=== PATIENT | male | born 1950 | race Caucasian/White ===

== ENCOUNTER 2019-08-13 09:37 | Emergency (ER) | payer MEDICARE, OTHER ==
[2019-08-13] MEDS ORDERED: BUFFERED LIDOCAINE 10 ML SYRINGE SUBQ STA (11:22)
--- NOTE | 2019-08-13 11:45 | XRAY Report ---
Reason: chainsaw to the patella Procedure Date: 08/13/2019 Accession Number: [id number] / [id number] Procedure: XR - Knee 4 View LT CPT Code: Final Report FULL RESULT: EXAM: LEFT KNEE RADIOGRAPHY EXAM DATE: 08/13/2019 11:19 AM. CLINICAL HISTORY: Chainsaw to the patella. COMPARISON: None. TECHNIQUE: 5 views. Gauze overlying anterior knee. FINDINGS: Bones: Normal. No fractures or bone lesions. Joints: Normal. No effusion. No subluxations. Soft Tissues: Deep anterior knee soft tissue laceration may extend to the patella. Superior patellar enthesophyte at quadriceps insertion. IMPRESSION: 1. Deep anterior soft tissue laceration, potentially extending to the anterior patellar surface. Recommend clinical correlation. 2. No radiographic evidence for fracture. RADIA
--- NOTE | 2019-08-13 11:53 | ED Physician Documentation ---
PD HPI LOWER EXT INJURY - Stated complaint Stated Complaint: L LEG LAC - Chief complaint Chief Complaint: Laceration - History of Present Illness PD HPI LOW EXT INJURY LOCATION: Left, Knee Type of injury: Laceration Where injury occurred: Home Timing - onset: Today Timing - duration: Minutes Timing - details: Abrupt onset, Still present Improved by: Rest, Immobilization Worsened by: Moving, Palpating Associated symptoms: No: Weakness, Numbness, Tingling, Swelling, Discolored Contributing factors: No: Anticoagulated Similar symptoms before: Diagnosis (laceration) Recently seen: Not recently seen - Additional information Additional information: 69-year-old male was using a chainsaw with a fresh blade and he set the body of the chainsaw down on his leg and lacerated his knee. He has 2 jagged lacerations to the patella on the left side and he is able to walk without difficulty. Review of Systems Constitutional: denies: Fever Eyes: denies: Decreased vision Ears: denies: Ear pain Nose: denies: Congestion Throat: denies: Sore throat Cardiac: denies: Chest pain / pressure Respiratory: denies: Cough PD PAST MEDICAL HISTORY - Past Medical History GI: GERD HEENT: Chronic hearing loss - Past Surgical History Past Surgical History: Yes General: Hiatal hernia repair - Present Medications Home Medications: Ambulatory Orders Medication Instructions Recorded Confirmed Lansoprazole [Prevacid] 30 mg PO DAILY 06/17/13 06/17/13 Cephalexin [Keflex] 500 mg PO TID #15 capsule 08/13/19 Tamsulosin [Flomax] 0.4 mg PO ONCE 08/13/19 08/13/19 - Allergies Allergies/Adverse Reactions: Allergies Allergy/AdvReac Type Severity Reaction Status Date / Time No Known Drug Allergies Allergy Verified 08/13/19 09:49 - Social History Does the pt smoke?: No Smoking Status: Never smoker Does the pt drink ETOH?: No Does the pt have substance abuse?: No - Immunizations Immunizations are current?: Yes Immunizations: TDAP current <10years PD ED PE NORMAL - Vitals Vital signs reviewed: Yes (hypertensive ) - General General: Alert and oriented X 3, No acute distress, Well developed/nourished - HEENT HEENT: Atraumatic, PERRL, EOMI - Respiratory Respiratory: No respiratory distress - Derm Derm: Normal color, Warm and dry, No rash - Extremities Extremities: No deformity, Other (There are 2 deep lacerations to the left patella. The lacerations are 5 cm and 2-1/2 cm and the deeper laceration the longer laceration extends down to the periosteum of the patella. There is no curve of the patella and no rough surface. There are tiny flecks of foreign body in the wound. Distal neurovascular components are intact and the knee is stable.) - Neuro Neuro: Alert and oriented X 3, bite block maker 2-12 intact, No motor deficit, No sensory deficit, Normal speech Eye Opening: Spontaneous Motor: Obeys Commands Verbal: Oriented GCS Score: 15 - Psych Psych: Normal mood, Normal affect Results - Vitals Vitals: Vital Signs - 24 hr 08/13/19 09:46 Temperature 36.4 C L Heart Rate 99 Respiratory 16 Rate Blood Pressure 151/71 H O2 Saturation 96 - Rads (name of study) knee L Radiology: Prelim report reviewed (Impression: 1. Deep anterior soft tissue laceration, potentially extending to the anterior patellar surface. Recommend clinical correlation. No radiographic evidence for fracture. I did), EMP read indepedently, See rad report Procedures - Laceration (location) left knee Length in cm: 7.5 Wound type: Linear, Irregular, Into subcut fat, Contaminated Neurovascular status: Sensory intact, Motor intact, Vascular intact Anesthesia: Lidocaine 1%, With bicarb Wound Preparation: Hibiclens, Irrigated copiously NS, Wound explored, To the base, FB removed Skin layer closure: Nylon, Interrupted, Size #-0 - enter number (4-0), Sutures - enter # (16) Other: Patient tolerated well, No complications, Neurovascular intact, Dressing applied, Tetanus booster given Complexity: Simple PD MEDICAL DECISION MAKING - ED course Complexity details: reviewed results, re-evaluated patient, considered differential, d/w patient, d/w family ED course: 69-year-old male with a deep laceration to the left knee over the patella does not appear to have cut the bone. With deep palpation there are no jagged edges to the bone. The patient's wound is cleaned out thoroughly irrigated with 500 mL's of saline and sutured. We will place him on some Keflex prophylactically. X-ray is without evidence of fracture. Departure - Departure Disposition: 01 Home, Self Care Clinical Impression: Laceration of knee, left Qualifiers: Encounter type: initial encounter Qualified Code(s): S81.012A - Laceration without foreign body, left knee, initial encounter Condition: Stable Instructions: ED Laceration Ext Sutr Stap Tape Follow-Up: Cash Rudd MD [Primary Care Provider] - Prescriptions: Cephalexin [Keflex] 500 mg PO TID #15 capsule Comments: Sutures will need to be removed in 10 to 14 days
[2019-08-13] MEDS ORDERED: TETANUS/DIPHTHERIA/PERTUSSIS 0.5 ML SYRINGE IM ONE (12:34)
[2019-08-13 13:03] VITALS: BP 136/89
== END 2019-08-13 13:13 | disposition home or self-care (01) ==
LOC: ED 09:37
DX: S81.012A Laceration without foreign body, left knee, initial encounter (principal); W29.3XXA Contact with powered garden and outdoor hand tools and machinery, initial encounter; Y92.009 Unspecified place in unspecified non-institutional (private) residence as the place of occurrence of the external cause; Z23 Encounter for immunization
CPT/HCPCS: 12002; 90471

== ENCOUNTER 2019-08-26 13:11 | Emergency (ER) | payer MEDICARE, OTHER ==
[2019-08-26 13:19] VITALS: BP 135/89
--- NOTE | 2019-08-26 13:50 | ED Physician Documentation ---
PD HPI LOWER EXT INJURY - Stated complaint Stated Complaint: REMOVE STITCHES - Chief complaint Chief Complaint: Laceration - History obtained from History obtained from: Patient - History of Present Illness PD HPI LOW EXT INJURY LOCATION: Left (69-year-old gentleman presents for suture removal from left knee laceration about 2 weeks ago without significant complications.) PD PAST MEDICAL HISTORY - Past Medical History Past Medical History: Yes GI: GERD HEENT: Chronic hearing loss - Past Surgical History Past Surgical History: Yes General: Hiatal hernia repair - Present Medications Home Medications: Ambulatory Orders Medication Instructions Recorded Confirmed Lansoprazole [Prevacid] 30 mg PO DAILY 06/17/13 06/17/13 Cephalexin [Keflex] 500 mg PO TID #15 capsule 08/13/19 Tamsulosin [Flomax] 0.4 mg PO ONCE 08/13/19 08/13/19 - Allergies Allergies/Adverse Reactions: Allergies Allergy/AdvReac Type Severity Reaction Status Date / Time No Known Drug Allergies Allergy Verified 08/26/19 13:14 - Social History Does the pt smoke?: No Smoking Status: Never smoker Does the pt drink ETOH?: No Does the pt have substance abuse?: No - Immunizations Immunizations are current?: Yes Immunizations: TDAP current <10years PD ED PE NORMAL - Vitals Vital signs reviewed: Yes - General General: Alert and oriented X 3, No acute distress - Extremities Extremities: Other (Healing laceration anterior over the left patella, sutures removed during examination without issue and replaced with Steri-Strips and benzoin.) - Neuro Neuro: Alert and oriented X 3, Normal speech Results - Vitals Vitals: Vital Signs - 24 hr 08/26/19 13:14 Temperature 36.9 C Heart Rate 98 Respiratory 16 Rate Blood Pressure 135/89 H O2 Saturation 96 Oxygen O2 Source Room air Departure - Departure Disposition: Home, Self Care Clinical Impression: Visit for suture removal Condition: Good
== END 2019-08-26 13:52 | disposition home or self-care (01) ==
LOC: ED 13:11
DX: S81.012D Laceration without foreign body, left knee, subsequent encounter (principal); X58.XXXD Exposure to other specified factors, subsequent encounter
CPT/HCPCS: 99281

== ENCOUNTER 2019-11-25 06:09 | Outpatient (CLI) | payer MEDICARE, OTHER ==
--- NOTE | 2019-11-25 09:12 | XRAY Report ---
Reason: COUGH Procedure Date: 11/25/2019 Accession Number: [id number] / [id number] Procedure: XR - Chest 2 View X-Ray CPT Code: 06651 Final Report FULL RESULT: EXAM: CHEST RADIOGRAPHY, 2 VIEWS EXAM DATE: 11/25/2019 07:03 AM. CLINICAL HISTORY: 69-year-old male with cough. COMPARISON: 01/09/2010 2 VIEW CHEST 9:59 AM. X-RAY CHEST PA AND LAT 01/30/2009 5:23 PM. TECHNIQUE: Upright PA and lateral views. FINDINGS: Lungs/Pleura: No focal opacities evident. No pleural effusion. No pneumothorax. Normal volumes. Mediastinum: Heart size normal, without adenopathy or pulmonary vascular congestion. Other: Trachea is midline. Osseous structures unremarkable for age. IMPRESSION: Unremarkable chest for age and body size, stable. No pneumonia, CHF or other demonstrated cause for cough. [facility]
--- NOTE | 2019-11-25 09:18 | Ultrasound Report ---
Reason: SCREENING AAA Procedure Date: 11/25/2019 Accession Number: [id number] / [id number] Procedure: US - Aorta Screening CPT Code: Final Report FULL RESULT: EXAM: AORTIC DOPPLER ULTRASOUND EXAM DATE: 11/25/2019 06:54 AM. CLINICAL HISTORY: Screening AAA. COMPARISON: None. TECHNIQUE: Real-time sonographic imaging of retroperitoneal vascular structures, including color-flow, Doppler flow and spectral analysis was performed by the technical cable jointer. Multiple manufacturers service representative static images were saved for review. FINDINGS: Aorta: The abdominal aorta was adequately visualized. No evidence for abdominal aortic aneurysm. Aorta: Proximal: Sagittal AP 2.8 x 2.5 cm. Mid: Transverse 2.0 x 2.2 cm. Distal: Transverse 1.8 x 2.0 cm. Caliber: WNL: Yes. Plaque visualized: No. Iliacs: Right Iliac: Transverse 1.2 x 1.3 cm. Left Iliac: Transverse 1.1 x 1.2 cm. Other: None. IMPRESSION: No abdominal aortic aneurysm. [facility]
== END 2019-11-25 06:10 | disposition home or self-care (01) ==
LOC: DI 06:09
PROVIDERS: ATTEND Internal Medicine
DX: Z13.6 Encounter for screening for cardiovascular disorders (principal); R05 Cough
CPT/HCPCS: 71046; 76706